=== PATIENT | female | born 1985 | race African-American/Black ===

== ENCOUNTER 2023-11-19 18:11 | Emergency (ER) | payer OTHER, SELFPAY ==
[2023-11-19 18:18] VITALS: BP 132/74; PULSE 85; RESP 20; TEMP 36.4; O2SAT 100; BMI 28.6
--- NOTE | 2023-11-19 19:03 | ED_ITS ---
HPI - Back Pain/Injury General Chief Complaint: Back Pain/Injury Stated Complaint: Back/Kidney Pain Time Seen by Provider: 11/19/23 18:40 Source: patient History of Present Illness HPI Narrative: Patient is a 37-year-old female who presents today with ongoing back pain. She reports it has been there for about 2 weeks. She feels like it does go through to her stomach that has not be down to her groin. No fever or chills. No hematuria. She does not remember injuring her back but she does lift and move patients at work. She is tried Tylenol and ibuprofen at home along with lidocaine patches. She is not any better. She has no radiation or numbness down her leg. Related Data Previous Rx's Medication Instructions Recorded methocarbamol 750 mg tablet 750 mg PO Q8H PRN muscle spasm #14 11/19/23 tabs Allergies Allergy/AdvReac Type Severity Reaction Status Date / Time Codeine Allergy Unknown Uncoded 05/17/17 12:07 Patient History Surgical History History of third molar tooth extraction Social History Smoking Status: Current every day smoker Smoking Status: Current every day smoker tobacco type: vaping Substance Use Type: does not use Exam Initial Vital Signs Initial Vital Signs: Vital Signs Temperature 97.6 F 11/19/23 18:18 Pulse Rate 85 11/19/23 18:18 Respiratory Rate 20 11/19/23 18:18 Blood Pressure 132/74 11/19/23 18:18 Pulse Oximetry 100 11/19/23 18:18 Oxygen Delivery Method Room Air 11/19/23 18:18 GENERAL: Alert 37-year-old female standing appears mildly uncomfortable and in no acute distress. HEENT: Head atraumatic,EOMI, pupils reactive, face symmetric, moist mucous membranes CARDIOVASCULAR: Regular rate and rhythm without murmurs, rubs or gallops. RESPIRATORY: Breath sounds equal bilaterally, no wheezes rales or rhonchi. ABDOMEN: Soft, nontender. Normoactive bowel sounds all 4 quadrants. No guarding or rebound. BACK: No vertebral tenderness no step-off pain is reproducible and left flank area : Mild left CVA tenderness EXTREMITIES: Normal range of motion, no clubbing or edema. Neurovascularly intact NEUROLOGICAL: Alert and oriented x4.Normal gait and speech. SKIN: Warm, dry, no laceration, no petechiae, no rashes or lesions. Course Orders Ordered: ED Orders 11/19/23 19:09 CT kidney ureter bladder (KUB) Stat Discontinued Medications Ketorolac Tromethamine (Ketorolac 30 Mg/Ml Vial) 30 mg IM NOW ONE Stop: 11/19/23 19:10 Last Admin: 11/19/23 19:23 Dose: 30 mg Documented By: ANNETTE Methocarbamol (Methocarbamol 500 Mg Tablet) 750 mg PO NOW ONE Stop: 11/19/23 20:02 Last Admin: 11/19/23 20:09 Dose: 750 mg Documented By: LEATHA Ondansetron HCl (Ondansetron 4 Mg/2 Ml Inj) 4 mg IV NOW PRN PRN Reason: Nausea And Vomiting Ondansetron HCl (Ondansetron 4 Mg Odt) 4 mg SL NOW PRN PRN Reason: Nausea And Vomiting Vital Signs Vital signs: Vital Signs - 8 hr 11/19/23 18:18 11/19/23 20:04 Temperature 97.6 F Pulse Rate 85 74 Respiratory Rate 20 18 Blood Pressure 132/74 126/82 Pulse Oximetry 100 98 Oxygen Delivery Method Room Air Room Air MDM - Back Pain/Injury Lab Data Labs: Point of Care Testing Test Results Negative Urine Dip Bedside Urine Glucose Negative Bedside Urine Bilirubin - Negative Bedside Urine Ketone - Negative Urine Specific Engelhard 1.010 Bedside Urine Occult Blood - Negative Bedside Urine pH 6.0 Bedside Urine Protein - Negative Bedside Urine Urobilinogen - Negative Bedside Urine Nitrite - Negative Bedside Urine Leukocytes - Negative Esterase Imaging Data CT scan - abdomen/pelvis: Radiologist's Impression: PROCEDURE: CT KIDNEY URETER BLADDER (KUB) INDICATIONS: left flank pain TECHNIQUE: Axial sections were acquired from the lung bases to the pubic symphysis. Coronal and sagittal reformats were performed. For radiation dose reduction, the following was used: automated exposure control, adjustment of mA and/or kV according to patient size. COMPARISON: None. FINDINGS: Image quality: Diagnostic. Lower Chest: No significant findings. URINARY: Right Kidney: No stone, hydronephrosis, or perinephric inflammation. Right Ureter: No hydroureter, ureteral calculus, or periureteric inflammation. Left Kidney: No stone, hydronephrosis, or perinephric inflammation. Left Ureter: No hydroureter, ureteral calculus, or periureteric inflammation. Bladder: Decompressed urinary bladder with normal wall thickness. No visible stone. ABDOMEN: Liver: No contour-deforming solid mass. Gallbladder: No wall thickening or calcified stones. Biliary ducts: No biliary dilation. Pancreas: No ductal dilation. Spleen: Size is within normal limits. Adrenal Glands: No adrenal nodules. Stomach and Bowel: Stomach and small bowel loops are normal caliber. Normal appendix. Normal quantity of colonic stool. No suspicious colon wall thickening or inflammation. Peritoneum: No abnormal intraperitoneal fluid. No free air. Ventral Wall: No hernia. Abdominal Nodes: No enlarged retroperitoneal or mesenteric lymph nodes. Vessels: Aorta and inferior vena cava are normal in size. PELVIS: Pelvic Organs: Normal appearance of uterus and ovaries for noncontrast CT. Pelvic Nodes: Unremarkable. Miscellaneous: No inguinal hernias are seen. Bones: Unremarkable. IMPRESSION: No urinary calcifications or obstructive uropathy. No other acute process in the abdomen or pelvis. Dictated by: Kezia Fischer M.D. on 11/19/2023 at 19:45 MDM Narrative Medical decision making narrative: Patient 37-year-old female who presents today with left flank pain ongoing for the last 2 weeks. Is reproducible with palpation. No nausea or vomiting does seem to be very positional. No hematuria or sign of UTI. She has not . She overall appears well nontoxic we decided no blood work but she was agreeable to a CT scan. No evidence of nephrolithiasis or other intra-abdominal pathology. I suspect this is musculoskeletal strain. She received Toradol here in the ED. recommended muscle relaxer such as methocarbamol and supportive care. Discharge Plan Departure Patient Disposition: Home Clinical Impression: Back strain Instructions: DI for Back Strain or Sprain Activity Restrictions/Additional Instructions: *You have been diagnosed with back strain *What to do: At this time increase activity as tolerated may need physical therapy. *Continue to take medications as directed Tylenol 1000 mg every 6 hours if needed for [id number] pain Motrin 600 mg every 6 hours if needed for [id number] pain Methocarbamol 750-1500 mg every 8-12 hours if needed for muscle spasm *Follow up with your primary care provider in 2-3 days or call [phone] *Return to ER if you should have increasing pain numbness tingling weakness or any new, worsening or concerning symptoms Prescriptions: New methocarbamol 750 mg tablet 750 mg PO Q8H PRN (Reason: muscle spasm) Qty: 14 0RF Referrals: Janie Guillory MD [Primary Care Provider] - Stand Alone Forms: Patient Portal/API
--- NOTE | 2023-11-19 19:09 | DI.CT.S_ITS ---
PROCEDURE: CT KIDNEY URETER BLADDER (KUB) INDICATIONS: left flank pain TECHNIQUE: Axial sections were acquired from the lung bases to the pubic symphysis. Coronal and sagittal reformats were performed. For radiation dose reduction, the following was used: automated exposure control, adjustment of mA and/or kV according to patient size. COMPARISON: None. FINDINGS: Image quality: Diagnostic. Lower Chest: No significant findings. URINARY: Right Kidney: No stone, hydronephrosis, or perinephric inflammation. Right Ureter: No hydroureter, ureteral calculus, or periureteric inflammation. Left Kidney: No stone, hydronephrosis, or perinephric inflammation. Left Ureter: No hydroureter, ureteral calculus, or periureteric inflammation. Bladder: Decompressed urinary bladder with normal wall thickness. No visible stone. ABDOMEN: Liver: No contour-deforming solid mass. Gallbladder: No wall thickening or calcified stones. Biliary ducts: No biliary dilation. Pancreas: No ductal dilation. Spleen: Size is within normal limits. Adrenal Glands: No adrenal nodules. Stomach and Bowel: Stomach and small bowel loops are normal caliber. Normal appendix. Normal quantity of colonic stool. No suspicious colon wall thickening or inflammation. Peritoneum: No abnormal intraperitoneal fluid. No free air. Ventral Wall: No hernia. Abdominal Nodes: No enlarged retroperitoneal or mesenteric lymph nodes. Vessels: Aorta and inferior vena cava are normal in size. PELVIS: Pelvic Organs: Normal appearance of uterus and ovaries for noncontrast CT. Pelvic Nodes: Unremarkable. Miscellaneous: No inguinal hernias are seen. Bones: Unremarkable. IMPRESSION: No urinary calcifications or obstructive uropathy. No other acute process in the abdomen or pelvis. Dictated by: Kezia Fischer M.D. on 11/19/2023 at 19:45 Approved by: Kezia Fischer M.D. on 11/19/2023 at 19:49
[2023-11-19] MEDS: KETOROLAC 30 MG/ML VIAL IM (19:23)
[2023-11-19 20:04] VITALS: BP 126/82; PULSE 74; RESP 18; O2SAT 98
[2023-11-19] MEDS: methocarbamoL 500 MG TABLET 750 MG PO (20:09)
== END 2023-11-19 20:11 | disposition home or self-care (01) ==
PROVIDERS: Emergency Provider Emergency Medicine; Family Provider Obstetrics & Gynecology; PCP Obstetrics & Gynecology
DX: S39.012A Strain of muscle, fascia and tendon of lower back, initial encounter (principal)
CPT/HCPCS: 74176; 81003; 81025; 96372; 99284; J1885

== ENCOUNTER 2023-12-16 21:32 | Emergency (ER) | payer OTHER, SELFPAY ==
[2023-12-16 21:37] VITALS: BP 143/94; PULSE 90; RESP 18; TEMP 37.1; O2SAT 100; BMI 29.2
--- NOTE | 2023-12-16 23:33 | ED_ITS ---
HPI - Back Pain/Injury General Chief Complaint: Back Pain/Injury Stated Complaint: severe back pain Time Seen by Provider: 12/16/23 23:33 Source: patient History of Present Illness HPI Narrative: Patient is a 38-year-old female with no past medical history presents for persistent left-sided low back pain, states that she injured her back at work several weeks ago is in the process of seeing physical therapy did see her primary care doctor was given methocarbamol with very little relief, states that she had a flare-up when she was seated in the car driving today denies any numbness tingling weakness to lower extremity denies any saddle paresthesias denies any bowel or urinary incontinence or retention. She presents because she is requesting for additional pain relief Related Data Previous Rx's Medication Instructions Recorded methocarbamol 750 mg tablet 750 mg PO Q8H PRN muscle spasm #14 11/19/23 tabs diazepam 5 mg tablet (Valium) 5 mg PO BID PRN muscle spasm 5 12/16/23 days #10 tabs prednisone 20 mg tablet 40 mg (2 x 20 mg) PO DAILY 5 days 12/16/23 #10 tabs Allergies Allergy/AdvReac Type Severity Reaction Status Date / Time Codeine Allergy Unknown Uncoded 05/17/17 12:07 Review of Systems Review of Systems Narrative: General: Denies fever, chills, weight loss HEENT: Denies headache, eye drainage, eye irritation, head trauma, sore throat, voice change Cardiovascular: Denies any chest pain, palpitations, shortness of breath, tachy cardia Respiratory: Denies any shortness of breath, cough, wheeze, stridor GI/: Denies any abdominal pain, nausea, vomiting, diarrhea, bright red blood per rectum, melanotic stools, urinary frequency, urinary retention, dysuria, hematuria MSK: Left-sided back pain Skin: Denies any rashes, lesions, discoloration Neuro: Denies any headache, lightheadedness, dizziness, fainting, weakness Psych: Denies SI/HI Patient History Surgical History History of third molar tooth extraction Social History Smoking Status: Current every day smoker Smoking Status: Current every day smoker tobacco type: vaping Substance Use Type: does not use Exam Narrative Exam Narrative: General: Cooperative, comfortable, well-developed, not in acute distress HEENT: Normocephalic, atraumatic, PERRLA, normal sclera, eyelids normal, Neck: Active full range of motion, atraumatic Chest: Normal to inspection, negative crepitus, no overlying erythema ecchymosis Respiratory: Normal respiratory effort, not in acute respiratory distress, clear to auscultation bilaterally negative cough, wheeze, tachypnea, rhonchi, rales Cardiology: Regular rate rhythm negative gallop, murmur, rubs GI/: Normal to inspection, soft, nonrigid, no tenderness to palpation, exam deferred MSK: Full range of active range of motion of all 4 extremities, atraumatic, patient without any tenderness to palpation of the midline thoracic or lumbar spine minor tenderness to palpation of the paraspinal muscles over the left and right side of the upper lumbar lower thoracic overlying erythema rashes or other gross deformities she is able to stand bear weight ambulate unassisted here in the emergency department Skin: No rashes lesions noted Neuro: Alert awake oriented x3, moves all 4 extremities spontaneously, cranial nerves intact, able to answer all questions appropriately follows commands appropriately Psych: Cooperative, negative suicidal or homicidal ideations Initial Vital Signs Initial Vital Signs: Vital Signs Temperature 98.7 F 12/16/23 21:37 Pulse Rate 90 12/16/23 21:37 Respiratory Rate 18 12/16/23 21:37 Blood Pressure 143/94 H 12/16/23 21:37 Pulse Oximetry 100 12/16/23 21:37 Oxygen Delivery Method Room Air 12/16/23 21:37 Course Orders Ordered: Discontinued Medications Dexamethasone (Dexamethasone 10 Mg/Ml Vial) 10 mg PO NOW ONE Stop: 12/16/23 23:46 Diazepam (Diazepam 5 Mg Tablet) 5 mg PO NOW ONE Stop: 12/16/23 23:46 Vital Signs Vital signs: Vital Signs - 8 hr 12/16/23 21:37 Temperature 98.7 F Pulse Rate 90 Respiratory Rate 18 Blood Pressure 143/94 H Pulse Oximetry 100 Oxygen Delivery Method Room Air MDM - Back Pain/Injury Differential Diagnosis Differential diagnosis: Likely strain of lumbar region and other (Muscle strain) MDM Narrative Medical decision making narrative: Patient is a 38-year-old female presents for lumbar pain states that she injured her back at work several weeks ago states that she is in the process of seeing physical therapy but is having persistent pain due to a flare-up while she was seated in her car for an extended amount of time today. No red flags for cauda equina, able to stand bear weight ambulate unassisted here in the emergency department, she will be sent home with steroids and Valium for her symptoms she was instructed follow up with the primary care and orthopedic surgery in outpatient setting she understands and agrees with the plan safe for discharge home with outpatient follow up Discharge Plan Departure Patient Disposition: Home Clinical Impression: Muscle strain Instructions: DI for Low Back Pain Activity Restrictions/Additional Instructions: Please read the discharge instructions sheet carefully and bring all papers to all doctor follow-up visits, as it may contain information that your doctor may want to see. Disease processes change and evolve, if your symptoms worsen or if you develop any new symptoms that are concerning to you please return for evaluation. Your evaluation today does not show any evidence of any life- threatening/serious illnesses requiring admission to the hospital or surgery. Please follow-up with your doctor for re-evaluation in approximately 1 day. Seek immediate medical attention for any worrisome symptoms. Prescriptions: New diazepam [Valium] 5 mg tablet 5 mg PO BID PRN (Reason: muscle spasm) 5 Days Qty: 10 0RF prednisone 20 mg tablet 40 mg PO DAILY 5 Days Qty: 10 0RF No Action methocarbamol 750 mg tablet 750 mg PO Q8H PRN (Reason: muscle spasm) Qty: 14 0RF Referrals: Janie Guillory MD [Primary Care Provider] - Eunice Maynard MD [Physician] - Stand Alone Forms: Patient Portal/API/Survey
[2023-12-16] MEDS: diazePAM 5 MG TABLET PO (23:50)
[2023-12-16] MEDS: DEXAMETHASONE 10 MG/ML VIAL PO (23:50)
[2023-12-17 00:01] VITALS: BP 141/66; PULSE 61; RESP 18; O2SAT 98
== END 2023-12-17 00:03 | disposition home or self-care (01) ==
PROVIDERS: Emergency Provider Student in an Organized Health Care Education/Training Program; Family Provider Obstetrics & Gynecology; PCP Obstetrics & Gynecology
DX: S39.012D Strain of muscle, fascia and tendon of lower back, subsequent encounter (principal); X58.XXXD Exposure to other specified factors, subsequent encounter
CPT/HCPCS: 99283; J1100